=== PATIENT | male | born 2000 | race Caucasian/White ===

== ENCOUNTER 2018-11-19 16:55 | Emergency (ER) | payer MEDICAID ==
[~2018-11-19] VITALS: Ht 175.3 cm; Wt 65.0 kg
[2018-11-19 17:02] VITALS: BP 130/78; PULSE 66; RESP 16; Ht 175.3 cm; Wt 65.0 kg
[2018-11-19] MEDS ORDERED: IBUPROFEN 600 MG TAB PO ONE (17:30)
[2018-11-19] MEDS ORDERED: SOD CHLORIDE 0.9% 1,000 ML IV ONE (17:30)
[2018-11-19] MEDS ORDERED: MIDAZOLAM 1 MG/ML 2 ML INJ IV ONE (17:30)
[2018-11-19] MEDS ORDERED: FENTAnyl 50 MCG/ML VIAL IV ONE (17:30)
[2018-11-19] MEDS ORDERED: OXYCODONE/ACETAMINOPHEN (5/325) TAB PO ONE (17:30)
[2018-11-19] MEDS ORDERED: IBUP-1542 PO (17:57)
--- NOTE | 2018-11-19 18:31 | ERD ---
ER Documentation Chief Complaint Chief Complaint RIGHT ELBOW INJURY WHILE PLAYING SOCCER TODAY HPI This is a 17-year-old man brought in by EMS for complaints of right elbow pain status post fall while playing soccer. States he lost balance and stretched out his right arm to break his fall and then felt a pop in his right elbow. He denies head or neck injury, no loss of consciousness, no complaints of chest pain or shortness of breath. EMS placed the patient in a right upper extremity air splint with the right upper extremity hyperabducted over the head ROS All systems reviewed and are negative except as per history of present illness. Medications Home Meds Active Scripts Ibuprofen* (Motrin*) 600 Mg Tab, 600 MG PO Q8 PRN for PAIN AND/OR INFLAMMATION, #30 TAB Prov:FABIOLA GARRISON MD 11/19/18 Allergies Allergies: Coded Allergies: No Known Allergy (Unverified , 11/19/18) PMhx/Soc Medical and Surgical Hx: pt denies Medical Hx, pt denies Surgical Hx Hx Alcohol Use: No Hx Substance Use: No Hx Tobacco Use: No Smoking Status: Never smoker FmHx Family History: No diabetes Physical Exam Vitals Vital Signs Date Temp Pulse Resp B/P (MAP) Pulse Ox O2 O2 Flow FiO2 Time Delivery Rate 11/19/18 98.6 66 16 130/78 100 17:02 (95) Physical Exam GENERAL: Well-developed, well-nourished, well-hydrated, mild discomfort, afebrile HEENT: Moist mucous membranes, pink conjunctiva, no cervical spine tenderness or step-off deformities, extraocular movements intact without pain. NEURO: Alert and oriented 3, cranial nerves II through XII intact bilaterally, pupils equal round reactive to light, no focal deficits or facial asymmetry, sensation intact distally Strength 5/5 in upper and lower extremities bilaterally CARDIAC: Regular rate and rhythm, no murmurs rubs or gallops LUNGS: Clear bilaterally no wheezing crackles or stridor ABDOMEN: Soft nontender, no guarding, no rigidity, no rebound, no psoas sign no obturator sign. SKIN: There is soft tissue skin tenting at the right elbow and gross deformity and mild superficial skin mottling over the right anterior forearm and hand. No lacerations or hematomas noted EXTREMITIES: Right upper extremity in a hyperabducted position above the head with soft tissue and bony deformity at the right elbow although nontender to touch. Radial pulse could not be palpated on the right Results 24 hrs Current Medications Medications Dose Sig/Juliana Start Time Status Last (Trade) Ordered Route PRN Stop Time Admin Dose Reason Admin Ibuprofen 600 mg ONCE ONCE 11/19/18 DC (Motrin) PO 17:30 11/19/18 17:31 Oxycodone/ 1 tab ONCE ONCE 11/19/18 DC Acetaminophen PO 17:30 (Percocet 11/19/18 17:31 (5/ 325)) Fentanyl 50 mcg ONCE ONCE 11/19/18 DC 11/19/18 (Sublimaze) IV 17:30 17:46 11/19/18 17:31 Midazolam 2 mg ONCE ONCE 11/19/18 DC 11/19/18 HCl IV 17:30 17:47 (Versed) 11/19/18 17:31 Sodium 1,000 ml @ Q1H ONCE 11/19/18 11/19/18 Chloride 1,000 mls/hr IV 17:30 17:46 11/19/18 18:29 Procedures/MDM IV line was established patient was placed on secured entrance monitor rhythm strip revealed a sinus rhythm at about 80 bpm with upright P and T waves. Patient was afebrile Patient had no palpable radial pulses of the right upper extremity due to elbow dislocation, I had to reduce emergently, obtain both verbal and written consent for emergent right elbow reduction from the patient and his father who was at the bedside. I administered 1 L normal saline IV, fentanyl 50 mcg IV, midazolam 0.5 mg IV x1. Traction countertraction was applied to the right forearm at the right elbow resulting in easy reduction and full range of motion at the right wrist, elbow, shoulder without difficulty after reduction was performed by me at the bedside. Patient's mental status remained normal and vital signs remained normal throughout the entire reduction procedure that was performed by me. Procedure had to be performed emergently due to most likely right popliteal artery occlusion secondary to elbow dislocation. Postreduction imaging was performed, read by me: Chest X-ray 1V Interpreted by me: Soft Tissue: No acute abnormalities Bones: No acute abnormalities Mediastinum/Cardiac Silhouette/Lungs: No acute abnormalities x-ray Right Elbow 3V Interpreted by me: Fat Pads: Normal Bones: No fracture Joints: No dislocation Foreign body: None X-ray right shoulder 3V Interpreted by me: Bones: No fracture Joints: No dislocation Foreign body: None Trauma critical Care: Time: 31 minutes, this was time separate from other billable procedures. Treatments/Evaluations: Close monitoring and treatment of unstable vital signs, cardiorespiratory, and neurologic status, while maintaining tight balance of fluid, respiratory, and cardiac interventions. Patient suffered right upper extremity trauma today and I did tell him and his father was at the bedside he may require MR imaging of the shoulder and/or elbow if he develops worsening or continued pain, weakness, or laxity at the joints, although MRI's could be performed as an outpatient and will be deferred to his primary care physician. Patient feels much better at this time, and vital signs are normal, symptoms have improved. I did give strict instructions to return to the ED if symptoms continue or worsen, patient will otherwise follow-up with primary care physician. Patient understood instructions and agreed to plan. Disclaimer: Inadvertent spelling and grammatical errors are likely due to EHR/dictation software use and do not reflect on the overall quality of patient care. Also, please note that the electronic time recorded on this note does not necessarily reflect the actual time of the patient encounter. Departure Diagnosis: Primary Impression: Shoulder sprain Encounter type: initial encounter Shoulder sprain type: unspecified sprain Laterality: right Qualified Codes: S43.401A - Unspecified sprain of right shoulder joint, initial encounter Additional Impressions: Elbow sprain Encounter type: initial encounter Laterality: right Qualified Codes: S53.401A - Unspecified sprain of right elbow, initial encounter Elbow dislocation Encounter type: initial encounter Laterality: right Qualified Codes: S53.104A - Unspecified dislocation of right ulnohumeral joint, initial encounter Condition: Good Patient Instructions: Elbow Dislocation FABIOLA GARRISON MD November 19, 2018 18:30
== END 2018-11-19 18:45 | disposition home or self-care (01) ==
LOC: E/R 16:55
DX: S43.401A Unspecified sprain of right shoulder joint, initial encounter (principal); S53.104A Unspecified dislocation of right ulnohumeral joint, initial encounter; M79.601 Pain in right arm; W18.30XA Fall on same level, unspecified, initial encounter; Y92.322 Soccer field as the place of occurrence of the external cause
CPT/HCPCS: 24600; 71045; 73030; 73080; J2250; J3010; J7030; Z7502; Z7610